=== PATIENT | female | born 1935 | race Caucasian/White ===

== ENCOUNTER → 2017-07-04 14:52 | Outpatient (CLI) | payer MEDICARE, MEDICAID, SELFPAY ==
[2017-07-04 15:15] LABS: Basophils % 0.5 % (0.1-2.0); Eosinophils # 0.3 K/mm3 (0.0-0.4); Eosinophils % 3.7 % (0.1-12.0); Hematocrit 35.2 % (37.0-47.0); Hemoglobin 11.4 g/dL (12.2-16.2); Lymphocytes # 1.1 K/mm3 (0.7-4.5); Lymphocytes % 14.9 K/mm3 (10-50); Mean Corpuscular HGB Conc 32.5 g/dL (31.8-35.4); Mean Corpuscular Hemoglobin 30.1 pg (27.0-31.2); Mean Corpuscular Volume 92.5 fl (81-99); Mean Platelet Volume 8.2 fl (7.4-10.4); Monocytes # 0.4 K/mm3 (0.1-1.0); Monocytes % 4.7 % (1.7-9.3); Neutrophils # 5.8 K/mm3 (1.8-7.8); Neutrophils % 76.2 % (37.0-80.0); Platelet Count 250 K/mm3 (142-424); Red Blood Count 3.81 M/mm3 (4.20-5.40); White Blood Count 7.6 K/mm3 (4.8-10.8)
[2017-07-04 16:25] LABS: Alanine Aminotransferase 21 U/L (12-78); Albumin Level 3.6 gm/dL (3.4-5.0); Albumin/Globulin Ratio 1.1 (1.1-1.8); Alkaline Phosphatase 60 U/L (46-116); Anion Gap 11.2 mEq/L (5-15); Aspartate Amino Transferase 16 U/L (15-37); Bilirubin,Total 0.3 mg/dL (0.2-1.0); Blood Urea Nitrogen 12 mg/dL (7-18); Calcium 8.9 mg/dL (8.5-10.1); Carbon Dioxide 32 mmol/L (21.0-32.0); Chloride 104 mmol/L (98-107); Chol/HDL Ratio 2.4 (1-3.5); Cholesterol 132 mg/dL (140-200); Estimated Glomerular Filt Rate 53 ml/min (>60); GFR (African American) 65 ML/MIN (>60); Globulin 3.2 gm/dl (1.3-3.2); Glucose 95 mg/dL (74-106); HDL Cholesterol 56 mg/dL (29-89); LDL Cholesterol 65 mg/dL (0-130); Potassium 4.2 mmoL/L (3.5-5.1); Sodium 143 mmol/L (136-145); Thyroid Stimulating Hormone 3.21 uIU/ml (0.358-3.740); Total Protein,Serum 6.8 gm/dL (6.4-8.2); Triglycerides 53 mg/dL (30-200); VLDL Cholesterol 11 mg/dL (0-40)
== END ==
PROVIDERS: PCP Internal Medicine Adolescent Medicine; Visit Provider Internal Medicine Adolescent Medicine
DX: J44.1 Chronic obstructive pulmonary disease with (acute) exacerbation (principal); I25.10 Atherosclerotic heart disease of native coronary artery without angina pectoris; E03.9 Hypothyroidism, unspecified
CPT/HCPCS: 36415; 80053; 80061; 84443; 85025

== ENCOUNTER 2017-08-04 12:24 | Observation (INO) ==
[2017-08-04 12:51] LABS: Basophils # 0.1 K/mm3 (0-0.2); Basophils % 0.8 % (0.1-2.0); Eosinophils # 0.5 K/mm3 (0.0-0.4); Hematocrit 36.8 % (37.0-47.0); Lymphocytes # 1.2 K/mm3 (0.7-4.5); Lymphocytes % 18.4 K/mm3 (10-50); Mean Corpuscular HGB Conc 32.6 g/dL (31.8-35.4); Mean Corpuscular Hemoglobin 30.5 pg (27.0-31.2); Mean Corpuscular Volume 93.7 fl (81-99); Mean Platelet Volume 8.5 fl (7.4-10.4); Monocytes # 0.4 K/mm3 (0.1-1.0); Monocytes % 6.8 % (1.7-9.3); Neutrophils # 4.4 K/mm3 (1.8-7.8); Neutrophils % 66.9 % (37.0-80.0); Platelet Count 189 K/mm3 (142-424); Red Blood Count 3.93 M/mm3 (4.20-5.40); Red Cell Distribution Width 13.8 % (11.5-17.5); White Blood Count 6.5 K/mm3 (4.8-10.8)
[2017-08-04 13:04] LABS: Albumin Level 3.2 gm/dL (3.4-5.0); Albumin/Globulin Ratio 0.9 (1.1-1.8); Bilirubin,Total 0.4 mg/dL (0.2-1.0); Calcium 9.2 mg/dL (8.5-10.1); Globulin 3.7 gm/dl (1.3-3.2); Total Protein,Serum 6.9 gm/dL (6.4-8.2)
--- NOTE | 2017-08-04 13:13 | Emergency Department Note ---
ED Disposition Clinical Impression: TIA (transient ischemic attack), Small vessel disease, A-fib, Abnormal EKG Disposition: Still a Patient Condition on Discharge: Fair Referrals: Jeet Fam MD [Primary Care Provider] - - Critical Care Critical Care Time: No Attestation: On 08/04/17, the high probability of a clinically significant, sudden or life threatening deterioration of the following system(s) required my full and direct attention, intervention and personal management. The time I documented below is in addition to time spent performing reported procedures but includes the following listed in this critical care notation. Medical Decision Making - Stefan Inquiry Pt receiving controlled substance: No Stefan was queried for this patient: No Vital Signs: 08/04/17 12:24 Temperature 98.9 F Temperature Source Temporal Artery Scan Pulse Rate [Right Brachial] 69 Respiratory Rate 16 Blood Pressure [Right Arm] 189/88 Blood Pressure Mean [Right Arm] 121 Blood Pressure Source [Right Arm] Automatic Cuff Blood Pressure Position [Right Arm] Standing 02 Sat by Pulse Oximetry 98 Oxygen Delivery Method Room Air - Lab Data Lab Results 08/04/17 12:30: WBC 6.5, RBC 3.93 L, Hgb 12.0 L, Hct 36.8 L, MCV 93.7, MCH 30.5 , MCHC 32.6, RDW 13.8, Plt Count 189, MPV 8.5, Neut % (Auto) 66.9, Lymph % (Auto ) 18.4, [place] % (Auto) 6.8, Eos % (Auto) 7.0, Baso % (Auto) 0.8, Neut # (Auto) 4.4, Lymph # (Auto) 1.2, [place] # (Auto) 0.4, Eos # (Auto) 0.5 H, Baso # (Auto) 0.1 08/04/17 12:30: Sodium 145, Potassium 4.0, Chloride 108 H, Carbon Dioxide 33 H, Anion Gap 8.0, BUN 12, Creatinine 1.01, Estimated Creat Clear 52, Estimated GFR 53 L, Est GFR ( Amer) 64, Glucose 106, Calcium 9.2, Total Bilirubin 0.4, AST 19, ALT 18, Alkaline Phosphatase 63, Total Protein 6.9, Albumin 3.2 L, Globulin 3.7 H, Albumin/Globulin Ratio 0.9 L 08/04/17 12:30: Lactic Acid 0.6 04/12/18 12:30: D-Dimer 162 08/04/17 12:30: Total Creatine Kinase 66, CK-MB (CK-2) 2.9, CK-MB (CK-2) Rel Index 4.4 H, Troponin I 0.04 08/04/17 12:30: B-Natriuretic Peptide 395 H 08/04/17 13:13: Specimen Source R radial, O2 % Room air, ABG pH 7.40, ABG pCO2 46.6 H, ABG pO2 69.4 L, ABG HCO3 28.3 H, ABG Total CO2 29.8 H, ABG O2 Saturation 94, ABG Base Excess 3.6 H, Bill Test Acceptable 08/04/17 13:20: Urine Color Yellow, Urine Appearance Clear, Urine pH 6.0, Ur Specific [place] 1.015, Urine Protein Negative, Urine Glucose (UA) Negative, Urine Ketones Negative, Urine Blood Trace-i, Urine Nitrate Negative, Urine Bilirubin Negative, Urine Urobilinogen 0.2, Ur Leukocyte Esterase Negative, Urine RBC Occasional, Urine WBC None, Ur Squamous Epith Cells 3-5, Urine Bacteria Trace Result diagrams: 08/04/17 12:30 08/04/17 12:30 Orders (Tests/Meds): ED MEDICATIONS Generic Name Dose Route Start Last Admin Trade Name Freq PRN Reason Stop Dose Admin Albuterol/Ipratropium 3 ml 08/04/17 13:13 Duoneb 3ml Neb IH 09/03/17 13:12 Q4HP PRN Shortness Of Breath Discontinued Medications Generic Name Dose Route Start Last Admin Trade Name Freq PRN Reason Stop Dose Admin Sodium Chloride 1,000 mls @ 999 mls/hr 08/04/17 13:15 08/04/17 13:37 Sod Chlor 0.9% 1000ml Bag IV 08/04/17 14:15 999 mls/hr .Q1H1M CAMMIE Administration ORDERS Category Date Time Status Blood Culture Stat Micro 08/04/17 12:30 Received ECG Request by /Vivian Stat Y 08/04/17 12:38 Stop Req - Radiology Data #1 Image(s): Chest Image Reviewed: Yes I reviewed the patient's radiology image, Yes I have reviewed radiologist's interpretation - ECG Data Tracing #1 Atrial fibrillation's with a slow ventricular response right bundle branch block LVH T-wave inversions of the lateral leads suggestive of ischemia, these changes are stable since November 2014. ECG initial impression date: 08/04/17 ECG initial impression time: 13:10 Medical Decision Narrative: The patient remained to be dizzy was able to go to the bathroom with assistance. She is in atrial fibrillation with controlled response she admitted for noncompliance occasionally with her Eliquis. 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 I called her primary care physician Dr. Niki Young spoke with Carmen his nurse practitioner who agreed to observe the patient obtain carotid duplex carotid echocardiogram and rehab evaluation. Dizzy HPI - General Chief Complaint: Weakness Stated Complaint: Weakness Time Seen by Provider: 08/04/17 12:35 Mode of Arrival: EMS Limitations: No Limitations Description of Symptoms (Recalled from ER Triage Doc. by RN): Pt c/o dizziness and weakness since this morning. Advbises she got up this morning to let her dog out and had to ;ay back down because she was so dizzy. Also has been coughing - History of Present Illness HPI Narrative: 82 years old white female history of COPD and atrial fibrillation who woke up with dizziness was unable to walk steady. She called the EMS and arrived in a stable condition. Denies headache neck stiffness chest pain shortness of breath nausea or vomiting or abdominal pain. MD complaint: dizziness Onset (ago): hour(s) Timing: sudden onset History of trauma: No Severity: moderate Relieving factors: remaining still Exacerbating factors: movement Associated symptoms: denies other symptoms - Related Data Allergies Allergy/AdvReac Type Severity Reaction Status Date / Time azithromycin Allergy Intermediate I-HIVES Verified 08/04/17 13:32 clarithromycin [From Biaxin] Allergy Unknown NA-NAUSEA/V Verified 08/04/17 13:32 OMITING levofloxacin Allergy Unknown Verified 08/04/17 13:32 penicillin G Allergy Unknown Verified 08/04/17 13:32 Sulfa (Sulfonamide Allergy Unknown Verified 08/04/17 13:32 Antibiotics) sulfamethoxazole Allergy Unknown Verified 08/04/17 13:32 [From Bactrim] trimethoprim [From Bactrim] Allergy Unknown Verified 08/04/17 13:32 codeine AdvReac Unknown Verified 08/04/17 13:32 [facility] History I have reviewed the patient's past medical history: Yes Medical History: Denies:: Cancer, Diabetes Mellitus Type 1, Diabetes Mellitus Type 2, MRSA Amputation: No - Social History Alcohol Intake: never - Psychiatric History Expresses thoughts of harming self/others: None Suicide Plan Description: No Plan ROS Obtained: Yes All systems reviewed & no additional complaints Physical Exam - General General appearance: alert, in no apparent distress - Head Head exam: atraumatic, normocephalic, normal inspection - Eye Eye exam: Present: normal appearance, PERRL, EOMI. Absent: nystagmus - ENT ENT exam: Present: normal exam, normal oropharynx, mucous membranes moist, TM's normal bilaterally, normal external ear exam - Neck Neck exam: Present: normal inspection, full ROM, trachea midline. Absent: meningismus, lymphadenopathy - Chest Chest inspection: Present: normal inspection, symmetric chest wall rise. Absent : tenderness - Respiratory Respiratory exam: Present: wheezes (Mild expiratory rhonchi.). Absent: respiratory distress - Cardiovascular Cardiovascular exam: Present: normal rhythm, irregular rhythm. Absent: JVD - Abdominal Exam Abdominal exam: Present: soft, normal bowel sounds. Absent: distention, tenderness, guarding - Extremities Exam Extremities exam: Present: normal inspection, full ROM, normal capillary refill. Absent: calf tenderness - Back Exam Back exam: Present: normal inspection. Absent: tenderness - Neurological Exam Neurological exam: Present: alert, oriented X3 - Psychiatric Psychiatric exam: Present: normal affect, normal mood - Skin Skin exam: Present: warm, dry, intact, normal color - Lymphatic Lymphatic Findings: no adenopathy
[2017-08-04 13:33] LABS: Microscopic, Urine URINE MICROSCOPIC (MICROSCOPIC)
[2017-08-04 13:35] LABS: Appearance,Urine CLEAR (Clear); Bilirubin,Urine Negative (Negative); Blood, Urine TRACE-I (Negative); Color,Urine YELLOW (Yellow); Glucose,Urine (UA) Negative (Negative); Ketones,Urine Negative (Negative); Leukocyte Esterase,Urine Negative (Negative); Protein,Urine Negative (Negative); Specific Gravity, Urine 1.015 (1.005-1.030); Urobilinogen,Urine 0.2 EU/dl (0.2)
[2017-08-04 14:02] LABS: Bacteria,Urine Trace /lpf; RBC,Urine Occasional #/hpf (0-3)
[2017-08-04 14:08] LABS: ABG Base Excess 3.6 mmol/L (-2.4-2.3); ABG HCO3 28.3 mmhg (22.0-26.0); ABG Oxygen Saturation 94 % (90-100); ABG PCO2 46.6 mmhg (35.0-45.0); ABG PO2 69.4 mmhg (80-100); ABG TCO2 29.8 mmhg (23-27); Oxygen ROOM AIR %
[2017-08-04 14:09] LABS: Allen's Test ACCEPTABLE
--- NOTE | 2017-08-04 16:47 | History & Physical Report ---
*Admission Date: 08/04/17 *Chief complaint: dizziness *History of present illness: 82 year old female with a h/o COPD, tobacco use, CAD, depression, hypothyroidism , DDD and atrial fibrillation presented to the ED with dizziness that began this morning. Patient reports when she stood up for the first time today she almost passed out. She has been dizzy and unsteady on her feet since that time. Denies any slurred speech, unilateral weakness, headaches or other neurological symptoms. In the ED, EKG showed a.fib with no acute ischemia. CT head showed old infarcts, nothing acute. CXR and labs were unremarkable. Patient was admitted for observation. [facility] History I have reviewed the patient's past medical history: Yes Medical History: Denies:: Cancer, Diabetes Mellitus Type 1, Diabetes Mellitus Type 2, MRSA Amputation: No - *Social History Alcohol Intake: never - Psychiatric History Expresses thoughts of harming self/others: None Suicide Plan Description: No Plan Review of Systems - Review of Systems Review of systems:: pertinent systems reviewed and negative unless documented below - *Respiratory Reports shortness of breath - *Neurologic Reports dizziness Meds Allergies Allergy/AdvReac Type Severity Reaction Status Date / Time azithromycin Allergy Intermediate I-HIVES Verified 08/04/17 13:32 clarithromycin [From Biaxin] Allergy Unknown NA-NAUSEA/V Verified 08/04/17 13:32 OMITING levofloxacin Allergy Unknown Verified 08/04/17 13:32 penicillin G Allergy Unknown Verified 08/04/17 13:32 Sulfa (Sulfonamide Allergy Unknown Verified 08/04/17 13:32 Antibiotics) sulfamethoxazole Allergy Unknown Verified 08/04/17 13:32 [From Bactrim] trimethoprim [From Bactrim] Allergy Unknown Verified 08/04/17 13:32 codeine AdvReac Unknown Verified 08/04/17 13:32 Exam Vital signs and Labs for Last 24 Hours: Temp Pulse Resp BP Pulse Ox 98.9 F 69 16 189/88 98 08/04/17 12:24 08/04/17 12:24 08/04/17 12:24 08/04/17 12:24 08/04/17 12:24 Narrative: Alert and oriented x3. Smiling and pleasant, NAD. Rate and rhythm irregular. Lung sounds with scattered wheezes/loose rhonchi. Abdomen soft and nontender. Skin, pink,warm and dry. Cranial nerves intact, speech clear. No LE edema. No JVD, thyromegaly or carotid bruits. Assessment and Plan (1) Dizziness Current visit: Yes Status: Acute Category: Medical Code(s): R42 - Dizziness and giddiness (2) A-fib Current visit: Yes Status: Chronic Category: Medical Code(s): I48.91 - Unspecified atrial fibrillation - Assessment and plan all Dx Assessment and Plan for all problems:: Admit for observation. Monitor telemetry. Carotid doppler and Echo to r/o underlying pathology.
[2017-08-05 05:04] LABS: Anion Gap 6.8 mEq/L (5-15); Chol/HDL Ratio 2.8 (1-3.5); Potassium 3.8 mmoL/L (3.5-5.1)
[2017-08-05 05:10] LABS: Basophils % 0.6 % (0.1-2.0); Eosinophils # 0.3 K/mm3 (0.0-0.4); Eosinophils % 5.9 % (0.1-12.0); Hematocrit 32.6 % (37.0-47.0); Lymphocytes # 1.3 K/mm3 (0.7-4.5); Lymphocytes % 23.1 K/mm3 (10-50); Mean Corpuscular HGB Conc 32.5 g/dL (31.8-35.4); Mean Corpuscular Hemoglobin 30.4 pg (27.0-31.2); Mean Corpuscular Volume 93.5 fl (81-99); Mean Platelet Volume 8.5 fl (7.4-10.4); Monocytes # 0.4 K/mm3 (0.1-1.0); Monocytes % 6.3 % (1.7-9.3); Neutrophils # 3.7 K/mm3 (1.8-7.8); Platelet Count 174 K/mm3 (142-424); Red Blood Count 3.49 M/mm3 (4.20-5.40); Red Cell Distribution Width 13.7 % (11.5-17.5); White Blood Count 5.8 K/mm3 (4.8-10.8)
[2017-08-05 05:19] LABS: Hemoglobin 10.6 g/dL (12.2-16.2)
--- NOTE | 2017-08-05 08:03 | Discharge Summary ---
General - General Admission date: 08/04/17 Discharge date: 08/05/17 HPI HPI: 82 year old female with a h/o COPD, tobacco use, CAD, depression, hypothyroidism , DDD and atrial fibrillation presented to the ED with dizziness that began this morning. Patient reports when she stood up for the first time today she almost passed out. She has been dizzy and unsteady on her feet since that time. Denies any slurred speech, unilateral weakness, headaches or other neurological symptoms. In the ED, EKG showed a.fib with no acute ischemia. CT head showed old infarcts, nothing acute. CXR and labs were unremarkable. Patient was admitted for observation. Hospital Course Hospital Course: Patient was admitted, had no further spells of dizziness or ataxia, was noted to have slightly higher blood pressure but she thinks this is from being stressed out in the hospital. This morning she is doing well, low-grade temperature, her chest x-ray did show mild atelectasis/infiltrate, and this morning she had a little bit of rhonchi. She wished to go home, and I felt that she is stable to go home and essentially at her baseline but is suffering a mild COPD exacerbation given her cough, congestion and increased sputum production. I will discharge her home on Levaquin and prednisone, I will see her in the office next week. We will officially review her echo and carotid reports at that point. She will continue aspirin therapy. Objective Vital signs: Temp Pulse Resp BP Pulse Ox 99.0 F 58 L 22 179/96 93 L 08/05/17 07:23 08/05/17 07:23 08/05/17 07:23 08/05/17 07:23 08/05/17 07:23 Narrative: Patient is pleasant, talkative on oxygen as baseline. Lungs have rhonchi in the bases. No crackles noted. Heart rate regular. Abdomen soft and nontender, no edema noted. ENT exam clear. Patient is neurologically intact, pleasant and talkative, walking well in the room according to nursing staff, no dizziness or ataxia. Results Labs on day of discharge: Labs from last 24 hours 08/05/17 08/05/17 08/05/17 04:25 04:25 04:25 WBC 5.8 RBC 3.49 L Hgb 10.6 L D Hct 32.6 L MCV 93.5 MCH 30.4 MCHC 32.5 RDW 13.7 Plt Count 174 MPV 8.5 Neut % (Auto) 64.0 Lymph % (Auto) 23.1 [place] % (Auto) 6.3 Eos % (Auto) 5.9 Baso % (Auto) 0.6 Neut # (Auto) 3.7 Lymph # (Auto) 1.3 [place] # (Auto) 0.4 Eos # (Auto) 0.3 Baso # (Auto) 0.0 Sodium 145 Potassium 3.8 Chloride 111 H Carbon Dioxide 31 Anion Gap 6.8 BUN 14 Creatinine 0.96 Estimated Creat Clear 52 Estimated GFR 56 L Est GFR ( Amer) 68 Glucose 107 H Troponin I 0.06 Triglycerides 63 Cholesterol 132 L LDL Cholesterol 71 VLDL Cholesterol 13 HDL Cholesterol 48 Cholesterol/HDL Ratio 2.8 08/04/17 22:10 WBC RBC Hgb Hct MCV MCH MCHC RDW Plt Count MPV Neut % (Auto) Lymph % (Auto) [place] % (Auto) Eos % (Auto) Baso % (Auto) Neut # (Auto) Lymph # (Auto) [place] # (Auto) Eos # (Auto) Baso # (Auto) Sodium Potassium Chloride Carbon Dioxide Anion Gap BUN Creatinine Estimated Creat Clear Estimated GFR Est GFR ( Amer) Glucose Troponin I 0.06 Triglycerides Cholesterol LDL Cholesterol VLDL Cholesterol HDL Cholesterol Cholesterol/HDL Ratio DS: Diagnosis - Discharge Diagnosis (1) COPD with acute exacerbation Status: Acute (2) TIA (transient ischemic attack) Status: Ruled-out (3) A-fib Status: Chronic Discharge Plan - Patient Discharge Instructions ACTIVITY: Continue current activity DIET: continue same diet - Follow up Plan Follow up with: Jeet Fam MD [Primary Care Provider] - 08/10/17 Disposition: Home, Self-Correction Medications: Home Medications Medication Instructions Recorded Confirmed Type Apixaban [Eliquis] 2.5 mg PO BID 08/04/17 08/04/17 History Carvedilol [Carvedilol 6.25mg Tab] 6.25 mg PO BID 08/04/17 08/04/17 History Digoxin [Digoxin 0.125mg Tablet] 125 mcg PO DAILY 08/04/17 08/04/17 History Donepezil HCl [Aricept 5mg] 5 mg PO DAILY 08/04/17 08/04/17 History Fluticasone Propionate 220 mcg INHALATION BID 08/04/17 08/04/17 History [Fluticasone Hfa 220mcg Inhaler] Hydrocod/Acet 5/325 mg [[place] 5 mg PO BID 08/04/17 08/04/17 History 5/325mg tablet] Levothyroxine Sodium 50 mcg PO DAILY 08/04/17 08/04/17 History [Levothyroxine 50mcg (0.05mg) Tab] Roflumilast [Daliresp] 500 mcg PO DAILY 08/04/17 08/04/17 History Sertraline HCl [Zoloft 100mg 100 mg PO DAILY 08/04/17 08/04/17 History tablet] Tiotropium [place] [Spiriva 18 mcg INHALATION DAILY 08/04/17 08/04/17 History 18mcg/puff inhaler] Venlafaxine HCl [Venlafaxine HCl 37.5 mcg PO DAILY 08/04/17 08/04/17 History ER] raNITIdine HCl [Ranitidine HCl] 150 mg PO BID 08/04/17 08/04/17 History Prescriptions/Medication Reconciliation: New predniSONE [Prednisone 20mg Tab] 20 mg PO DAILY #14 tab levoFLOXacin [Levaquin] 500 mg PO DAILY #7 tab Continue Fluticasone Propionate [Fluticasone Hfa 220mcg Inhaler] 220 mcg INHALATION BID Hydrocod/Acet 5/325 mg [[place] 5/325mg tablet] 5 mg PO BID raNITIdine HCl [Ranitidine HCl] 150 mg PO BID Roflumilast [Daliresp] 500 mcg PO DAILY Tiotropium [place] [Spiriva 18mcg/puff inhaler] 18 mcg INHALATION DAILY Venlafaxine HCl [Venlafaxine HCl ER] 37.5 mcg PO DAILY Levothyroxine Sodium [Levothyroxine 50mcg (0.05mg) Tab] 50 mcg PO DAILY Donepezil HCl [Aricept 5mg] 5 mg PO DAILY Carvedilol [Carvedilol 6.25mg Tab] 6.25 mg PO BID Apixaban [Eliquis] 2.5 mg PO BID Sertraline HCl [Zoloft 100mg tablet] 100 mg PO DAILY Digoxin [Digoxin 0.125mg Tablet] 125 mcg PO DAILY
--- NOTE | 2017-08-05 12:52 | Cardiology Report ---
PROCEDURE: 2-D M-mode and color Doppler study INDICATIONS FOR THE TEST: Chest painX COPDX Heart Murmur Tobacco SmokingEX Palpitations Fatigue Syncope Edema HypertensionXDiabetes Mellitus Rheumatic Fever SOB BANG Obesity HyperlipidemiaX Family History HD Additional History AF PATIENT INFORMATION HEIGHT: 70 WEIGHT:165 GENDER: Female B/P:110/70 2-D/M-MODE INTERPRETATION: 2-D MEASUREMENTS OBSERVED VALUES IN CMS Right Ventricular Dimension (RVDd) 3.7 Interventricular Septum (Thickness)(IVsd) 1.2 Left Ventricular Internal Dimensions(LVIDd) 5.0 Left Ventricular Posterior Wall (Thickness)(LVPWd) 1.2 Aortic Root 3.4 Aortic Cusp Separation Left Atrial Dimensions (LAD) 4.2 2D 1. Left atrium is moderately enlarged, left ventricle is normal size, mild concentric left ventricular hypertrophy, visually estimated ejection fraction 50% with no obvious regional wall motion abnormality. 2. The right atrium and right ventricle are moderately enlarged with normal contractility. 3. The aortic valve is minimally thickened and fibrosed. 4. The mitral valve leaflets are minimally thickened, there is mild mitral annular calcification present. 5. The tricuspid valve leaflets are minimally thickened. 6. The pulmonic valve is poorly visualized. 7. No significant pericardial effusion noted. DOPPLER INTERROGATION: Doppler interrogation of the aortic, mitral and tricuspid valvular presence of moderate to severe mitral and mild tricuspid regurgitation, tricuspid and jet velocity insufficient for calculation of the right ventricular systolic pressure, diastolic parameters are inconclusive. CONCLUSION: 1. Moderate biatrial enlargement, normal left ventricular size, mild concentric left ventricular hypertrophy, visually estimated ejection fraction 50% with no obvious regional wall motion abnormality, diastolic parameters are inconclusive. 2. Moderately enlarged right ventricle with normal contractility. 3. Moderate to severe mitral and mild tricuspid regurgitation 4. No significant pericardial effusion noted.
== END 2017-08-05 10:32 | disposition home or self-care (01) ==
LOC: 2ND 12:24 → ER 12:24 → 2ND 17:21
PROVIDERS: ADMIT Internal Medicine Adolescent Medicine; ATTEND Internal Medicine Adolescent Medicine

== ENCOUNTER → 2018-04-21 11:33 | Outpatient (CLI) | payer MEDICARE, MEDICAID, SELFPAY ==
--- NOTE | 2018-04-21 11:38 | NM_ITS ---
History and Indications: Hypertension, family history, shortness of breath, syncope and fatigue Procedure: Patient received a 0.4 mg of intravenous Lexiscan, resting heart rate was 38 bpm resting blood pressure 128/64, with Lexiscan maximum heart rate achieved was 45 bpm which is less than 85% of the maximum predicted heart rate and a blood pressure was 177/83. Electrocardiogram: Resting electrocardiogram showed atrial fibrillation, low ventricular response, right ventricle conduction delay, nonspecific changes, with intravenous Lexiscan less than 1.[address] segment depression noted from the baseline EKG. The EKG portion of the Lexiscan Myoview is nondiagnostic. Cardiac stress and resting SPECT images: Cardiac stress and resting SPECT images were obtained using technetium 99 Myoview 30.9 mCi stress and 10.8 mCi at rest. Gated SPECT further analysis of segmental wall motion and calculation of the ejection fraction also done. Cardiac stress and resting SPECT images show a mild fixed defect in the anterior wall with normal contractility in the gated SPECT is likely secondary to soft tissue attenuation, no reversible ischemia seen. Computer derived ejection fraction is 48% with no regional wall motion abnormality, right ventricle is normal size and contractility. Conclusion: 1. The EKG portion of the Lexiscan Myoview is nondiagnostic. 2. No scintigraphic evidence of reversible ischemia seen, computer derived ejection fraction is 48% with no regional wall motion abnormality. Right ventricle is normal size and contractility.
--- NOTE | 2018-04-21 13:34 | HMH.ITSHM ---
Current Home Medications as stated by this patient Gisella Clark or financial representative. []RANITIDINE MONTELUKAST LOSARTAN ZOLOFT ROFLUMILAST LEVOTHYROXINE DIGOXIN CARVEDILOL ELIQUIS
== END ==
PROVIDERS: PCP Internal Medicine Adolescent Medicine; Visit Provider Internal Medicine
DX: G45.9 Transient cerebral ischemic attack, unspecified (principal); I48.91 Unspecified atrial fibrillation; I73.9 Peripheral vascular disease, unspecified; J44.1 Chronic obstructive pulmonary disease with (acute) exacerbation; R42 Dizziness and giddiness; R94.31 Abnormal electrocardiogram [ECG] [EKG]; I34.0 Nonrheumatic mitral (valve) insufficiency
CPT/HCPCS: 78452; 93017; 93922; A9502; J2785